=== PATIENT | male | born 1960 | race African-American/Black ===

== ENCOUNTER → 2025-02-03 | Day surgery (SDC) | payer BC ==
[2025-02-02 12:07] LABS: BASOPHILS % 0.7 % (0.0-1.0); EOSINOPHILS % 7.2 % (0.0-6.0); LYMPHOCYTES % 19.5 % (18.0-39.1); MONOCYTES % 7.1 % (4.4-11.3); NEUTROPHILS % 65.3 % (38.7-80.0); RED CELL DISTRIBUTION WIDTH 21.3 % (11.7-14.4)
[~2025-02-03] MED LIST: ACETAMINOPHEN 1000 MG/100 ML 100 ML IV ONE; ACETAMINOPHEN 1000 MG/100 ML IV PRN; ASPIRIN 325 MG TAB PO SCH; ASPIRIN81 MG PO; ATORVASTATIN CA20 MG PO; CELEBREX200 MG PO; CELECOXIB 100 MG CAP PO SCH; DIPHENHYDRAMINE HCL INJ 50 MG/ML VIAL IV PRN; DOCUSATE SODIUM 100 MG CAP PO PRN; FENTANYL CITRATE/PF 100MCG/2 ML INJ ONE; FISH OIL 1,0001 EAC7; GINKGO BILOBA40 M1; HYDROCODONE/APAP 5MG-325MG TAB PO PRN; HYDROCODONE/APAP 7.5MG-325MG 1 EA TAB PO PRN; HYDROMORPHONE 2MG/ML ONE; LABETALOL HCL 20 ML ONE; LANTUS 3ML100 UNITS/; LOSARTAN-HCTZ1 EACH; METFORMIN HCL850 MG PO; MIDAZOLAM HCL 2 MG/2 ML VIAL ONE; MULTI-VITAMIN1 EACH PO; NOVOLOG MI100 UNIT/1 SC; ONDANSETRON HCL INJ 2MG/ML 2ML 2 MG/ML VIAL IV PRN; OZEMPIC2 MG/0.75; PROPOFOL IV EMULSION 10 MG/ML 20 ML VIAL ONE; ROCURONIUM BROMIDE 1 ML IV ONE; ROPIVACAINE/EPI/CLONIDINE/KET 50 ML SYRINGE INJ ONE; SEVOFLURANE INHAL SOLN 250 ML PEN BTL ONE; SODIUM CHLORIDE 0.9% 1000ML 1,000 ML IV SCH; SUGAMMADEX SODIUM 200 MG/2 ML VIAL IV ONE; VENLAFAXINE HCL75 MG PO; VITAMIN C1000 MG PO; VITAMIN E400 UNI1 PO; ZETIA10 MG PO
[2025-02-03] MEDS: CEFAZOLIN SODIUM 2 GM ONE (08:37)
[2025-02-03] MEDS: LACTATED RINGER'S 1,000 ML ONE (08:38)
[2025-02-03] MEDS: DEXAMETHASONE SOD PHOS 10 MG/1 ML VIAL ONE (08:38)
[2025-02-03] MEDS: GABAPENTIN 300 MG CAP ONE (08:39)
[2025-02-03] MEDS: CELECOXIB 200 MG CAP ONE (08:39)
[2025-02-03 09:53] LABS: EST GLOMERULAR FILTRATION RATE 97.0 ML/MIN (>=60)
[2025-02-03 12:36] VITALS: TEMP 97
[2025-02-03] MEDS: HYDRALAZINE HCL 20 MG/ML VIAL ONE (13:25)
[2025-02-03 15:10] VITALS: BP 150/66; PULSE 88; RESP 15; O2SAT 97
== END | disposition home health service (06) ==
LOC: OR 08:00
PROVIDERS: ATTEND Specialist
DX: M16.11 Unilateral primary osteoarthritis, right hip (principal); E11.9 Type 2 diabetes mellitus without complications; Z79.4 Long term (current) use of insulin; Z79.84 Long term (current) use of oral hypoglycemic drugs; Z72.0 Tobacco use; I10 Essential (primary) hypertension; Z01.812 Encounter for preprocedural laboratory examination; Z01.818 Encounter for other preprocedural examination
CPT/HCPCS: 27130; 36415 ×2; 71046; 72170; 80048; 82948; 85025; 86850; 86900; 97110; 97116; 97161; C1713 ×3; C1776; J0131; J0360; J1100; J1171; J2250; J2704; J3010; J3490; J7121